=== PATIENT | female | born 1990 | race Caucasian/White ===

== ENCOUNTER 2020-08-04 08:19 | Outpatient (CLI) | payer OTHER, SELFPAY ==
--- NOTE | 2020-08-04 08:28 | XR_ITS ---
WS: [id number] CERVICAL SPINE TECHNIQUE: 3 views of the cervical spine CLINICAL INFORMATION: NECK PAIN COMPARISON: None. FINDINGS: Normal cervical alignment. Normal C1-2 articulation. Normal prevertebral soft tissues. Disc space hei ghts are well-maintained. Normal dens. XR/XR cervical spine 3V* [id number] IMPRESSION: Normal cervical spine
== END 2020-08-04 08:20 | disposition home or self-care (01) ==
PROVIDERS: PCP Nurse Practitioner Family; Visit Provider Nurse Practitioner Family
DX: M54.2 Cervicalgia (principal)
CPT/HCPCS: 72040

== ENCOUNTER → 2020-08-21 10:00 | Outpatient (BNVA) | payer OTHER, SELFPAY | PROVIDERS: PCP Nurse Practitioner Family; Visit Provider Obstetrics & Gynecology | DX: Z12.4 Encounter for screening for malignant neoplasm of cervix (principal); N72 Inflammatory disease of cervix uteri; R63.5 Abnormal weight gain; R10.2 Pelvic and perineal pain; N63.0 Unspecified lump in unspecified breast | CPT/HCPCS: 83525; 85025; 88175 ==

== ENCOUNTER → 2020-08-24 13:47 | Outpatient (BNVA) | payer OTHER, SELFPAY | PROVIDERS: PCP Nurse Practitioner Family; Visit Provider Obstetrics & Gynecology | DX: R10.31 Right lower quadrant pain (principal) | CPT/HCPCS: 76830 ==

== ENCOUNTER 2020-10-02 14:47 | Outpatient (CLI) | payer OTHER, SELFPAY ==
--- NOTE | 2020-10-02 15:00 | US_ITS ---
WS: [id number] ULTRASOUND BREAST RIGHT TECHNIQUE: Ultrasound right breast focused area of concern. CLINICAL INFORMATION: N63.0 - Unspecified lump in unspecified breast COMPARISON: None. FINDINGS: Ultrasound area of concern right breast 11 to 12:00 position. Dense underlying breast parenchyma. No suspicious underlying lesions. Tiny incidental cyst measuring 5 mm. No lesions to target for biopsy. US/US breast RT limited* [id number] IMPRESSION: No suspicious findings. RECOMMEND ANNUAL SCREENING MAMMOGRAPHY AGE 41.
== END 2020-10-02 14:48 | disposition home or self-care (01) ==
LOC: RAD 14:50
PROVIDERS: PCP Nurse Practitioner Family; Visit Provider Obstetrics & Gynecology
DX: N63.10 Unspecified lump in the right breast, unspecified quadrant (principal)
CPT/HCPCS: 76642

== ENCOUNTER 2020-12-19 15:00 | Outpatient (CLI) | payer OTHER, SELFPAY | END 2020-12-19 15:01 | disposition home or self-care (01) | LOC: SLEEP 12-20 16:15 | PROVIDERS: PCP Nurse Practitioner Family; Visit Provider Internal Medicine Cardiovascular Disease | DX: R07.9 Chest pain, unspecified (principal); R00.2 Palpitations; R06.00 Dyspnea, unspecified | CPT/HCPCS: 94762 ==

== ENCOUNTER 2020-12-19 15:25 | Outpatient (CLI) | payer OTHER, SELFPAY ==
--- NOTE | 2020-12-19 15:45 | USCV_ITS ---
Ashleigh Chung Age: 30 Gender: F : 1990 Exam Date: 12/19/2020 15:49 Ordering Phys: Allison Medrano MD ([email or web address]) Technologist: Linda Reis Exam Location: [facility] [place] Indication: CHEST PAIN BP: 106 / 72 HR: 77 Rhythm: Sinus Technical Quality: Adequate MEASUREMENTS (Male / Female) Normal Values 2D ECHO LV Diastolic Diameter PLAX 4.4 cm 4.2 - 5.9 / 3.9 - 5.3 cm LV Systolic Diameter PLAX 2.6 cm IVS Diastolic Thickness 0.8 cm 0.6 - 1.0 / 0.6 - 0.9 cm IVS Systolic Thickness 1.7 cm LVPW Diastolic Thickness 1.0 cm 0.6 - 1.0 / 0.6 - 0.9 cm LVPW Systolic Thickness 1.4 cm LVOT Diameter 1.9 cm LV Ejection Fraction 2D Teich 72.3 % LV Ejection Fraction MOD 2C 78.4 % LV Ejection Fraction 2C AL 77.9 % LA Diameter 3.1 cm LA Width 2.9 cm LA Height 3.4 cm RA Width 2.9 cm RA Height 3.0 cm Aorta at Sinotubular Diameter 2.6 cm DOPPLER AV Peak Velocity 123.0 cm/s LVOT Peak Velocity 101.0 cm/s AV Area Cont Eq vti 2.3 cm squared AV Area Cont Eq pk 2.4 cm squared MV Area PHT 6.3 cm squared Mitral E to A Ratio 1.5 MV E' Velocity 52.0 cm/s Mitral E to MV E' Ratio 5.9 Mitral E to LV E' Lateral Ratio 5.9 Mitral E to LV E' Septal Ratio 5.8 TR Peak Velocity 172.7 cm/s TR Peak Gradient 11.9 mmHg TV Peak E Velocity 121.0 cm/s Right Atrial Pressure 3.0 mmHg Pulmonary Artery Systolic Pressu 14.9 mmHg RV Acceleration Time 0.1 s RV Ejection Time 0.3 s RV AcT/ET 0.4 FINDINGS Left Ventricle Normal left ventricular size, systolic function and wall thickness, with no regional wall motion abnormalities. Left ventricular ejection fraction is estimated at 65 %. Normal diastolic function. Right Ventricle Normal right ventricular size and systolic function, RVSP 15 mmHg. Right Atrium Normal right atrial size. Right atrial pressure estimated at 3 mmHg. Left Atrium Normal left atrial size. Mitral Valve Structurally normal mitral valve. No mitral valve stenosis. Trace mitral valve regurgitation. Aortic Valve Structurally normal trileaflet aortic valve. No aortic valve stenosis. No aortic valve regurgitation. Tricuspid Valve Structurally normal tricuspid valve. No tricuspid valve stenosis. Mild tricuspid valve regurgitation. Pulmonic Valve Structurally normal pulmonic valve. No pulmonary valve stenosis. Trace pulmonary valve regurgitation. Pericardium No pericardial effusion. Aorta Normal size aortic root and proximal ascending aorta. Normal- sized inferior vena cava with normal respiratory variation. CONCLUSIONS 1. Normal left ventricular size, systolic function and wall thickness, with no regional wall motion abnormalities. Left ventricular ejection fraction is estimated at 65 %. Normal diastolic function. 2. Normal right ventricular size and systolic function. 3. Normal pulmonary artery pressure. 4. Mild tricuspid valve regurgitation. 5. No pericardial effusion. 6. No prior similar studies to compare. Allison Medrano MD (Electronically Signed) Final Date: 23 Dec 2020 18:52 S
== END 2020-12-19 15:26 | disposition home or self-care (01) ==
LOC: US 15:29
PROVIDERS: PCP Nurse Practitioner Family; Visit Provider Internal Medicine Cardiovascular Disease
DX: R07.9 Chest pain, unspecified (principal); I07.1 Rheumatic tricuspid insufficiency
CPT/HCPCS: 93306

== ENCOUNTER 2021-05-15 09:29 | Outpatient (CLI) | payer OTHER, SELFPAY ==
--- NOTE | 2021-05-15 09:36 | XR_ITS ---
WS: [id number] Sacrum and coccyx, 3 views, 05/15/2021 Clinical Data: COCCYX PAIN Comparison: None. Findings: No fractures or dislocations are seen. The SI joints and pubic symphysis are unremarkable. No bone de struction or erosion is seen. XR/XR sacrum coccyx min 2V [id number] Impression: Negative sacrum and coccyx.
== END 2021-05-15 09:30 | disposition home or self-care (01) ==
PROVIDERS: PCP Nurse Practitioner Family; Visit Provider Nurse Practitioner Family
DX: M53.3 Sacrococcygeal disorders, not elsewhere classified (principal)
CPT/HCPCS: 72220

== ENCOUNTER 2022-03-19 10:10 | Outpatient (CLI) | payer OTHER, SELFPAY ==
--- NOTE | 2022-03-19 10:15 | MM_ITS ---
WS: [id number] DIAGNOSTIC BILATERAL DIGITAL BREAST TOMOSYNTHESIS MAMMOGRAPHY WITH CAD RIGHT breast ultrasound, limited. HISTORY: BILATERAL BREAST PAIN COMPARISON: None available. TECHNIQUE: Bilateral craniocaudad, mediolateral oblique, and mediolateral views are submitted with to mosynthesis and SM. Spot compression RIGHT CC. Computer aided detection utilized. Breast composition: The breasts are heterogeneously dense, which may obscure small masses. Triangular palpable marker is placed over the upper outer quadrant of the RIGHT breast. No underlying mass or d istortion identified. No calcifications within either breast. No nipple retraction. RIGHT breast ultrasound, limited. Ultrasound directed all 4 quadrants as by the patient. Pain in all 4 quadrants. No abnormality is humphrey ntified. 9 lymph node in the RIGHT axilla. No architectural distortion. No skin thickening. No mass. MM/[place] [id number] IMPRESSION: BI-RADS: 2-Benign FOLLOW UP: Age 41
== END 2022-03-19 10:11 | disposition home or self-care (01) ==
LOC: RAD 10:11
PROVIDERS: PCP Nurse Practitioner Family; Visit Provider Nurse Practitioner Family
DX: N64.4 Mastodynia (principal)
CPT/HCPCS: 76642; 77062

== ENCOUNTER 2022-03-29 12:44 | Emergency (ER) | payer OTHER, SELFPAY ==
[2022-03-29 12:50] VITALS: BP 153/93; PULSE 71; RESP 16; TEMP 36.7; O2SAT 98
--- NOTE | 2022-03-29 13:09 | US_ITS ---
WS: [id number] TRANSABDOMINAL PELVIC AND TRANSVAGINAL PELVIC ULTRASOUND HISTORY: rule out ovarian cyst COMPARISON: 08/24/2020 Uterus: 10.7 cm x 6.7 cm x 5.4 cm. Anteverted uterus. Uterus is slightly enlarged. No fibroid or mass . Endometrium: 1.4 cm. Normal endometrium. No increased vascularity. Right ovary: 3.8 cm x 3.2 cm x 2.2 cm. Multiple small peripheral follicles associated with the RIGHT ovary. One follicle is complex and may be hemorrhagic. No cysts. No solid mass. Normal vascularity. Left ovary: 3.1 cm x 1.4 cm x 2.8 cm. Normal size ovary. Normal vascularity. No free fluid. US/US pelvic with transvaginal IMPRESSION: 1. No free fluid. 2. Normal endometrium. 3. Several small follicles on the RIGHT ovary. No solid mass or torsion identi fied.
--- NOTE | 2022-03-29 13:10 | ED_ITS ---
Documented by User: Nani Mejía PA-C 03/29/22 15:15 HPI - Abdominal Pain General: Chief Complaint: Abdominal Pain Stated Complaint: Lower abd pain, N/V Time Seen by Provider: 03/29/22 13:05 Source: patient Mode of arrival: ambulatory Limitations: no limitations History of Present Illness: 31-year-old female presents to the ER today for lower abdominal pain x24 hours. Patient reports the pain began yesterday morning and then she had intercourse last night and reports during intercourse she had to stop and she has had significantly worsened pain since then. Patient reports it hurts to move and just hurts at rest also. She reports pain radiates all the way across her lower abdomen and into her pelvis. She reports some these are shooting pains. Patient reports LMP was 03/15. Patient reports she has had a tubal. Patient reports she last had a Pap 2 months ago which was normal. She denies any history of STDs. Patient reports she is in a monogamous relationship. Patient denies any pain with urination. She reports a history of possible ovarian cysts however these have never been evaluated or treated. Patient reports she does not take any control at this time but did in the past off and on. Patient denies any fever or chills. Denies any nausea or vomiting other than nausea associated with the bad pain. She denies any diarrhea or constipation. Related Data: Date of Last Menstrual Period: 03/15/22 Review of Systems General: Reports: 10 or more systems reviewed and unremarkable except in HPI and below PFSH ED PFSH: Medical History Cervical cancer screening Cervicitis and endocervicitis Weight gain Surgical History H/O dilation and curettage 2011 History of delivery 10/07/2014-primary low transverse delivery done for nonreassuring heart tracing by Dr. Tirado [place] [facility] [place] Immediate postoperative course was complicated by hemorrhage intraoperatively secondary to uterine atony. Patient's hemoglobin postoperatively dropped to 7.6 and she was given a transfusion of 4 units of PRBCs as she was lightheaded. Her hemoglobin recovered well and upon discharge was 12.1. History of tubal ligation 2014 Family History Mother Ovarian cancer Uterine cancer Hypertension Grandmother Breast cancer Diabetes Cervical cancer Family/Other Family history of thyroid problem aunt Hypertension Aunt and Uncle Diabetes Aunt Grandmother No problems noted. Grandfather Diabetes Social History Smoking and tobacco status: current every day smoker cigarettes Packs smoked per day: 0.5 Years cigarettes smoked: 13 Alcohol intake: current Alcohol intake frequency: few times a month Female Reproductive History: Date of last menstrual period: 03/15/22 Physical Exam Const: COMMON NORMALS: average body habitus, patient oriented x3, no limitations, healthy appearing, alert and well nourished Resp: COMMON NORMALS: normal respiratory effort, No retractions and clear to auscultation bilaterally AUSCULTATION: clear to auscultation bilaterally Cardio: COMMON NORMALS: regular rate and regular rhythm RATE: regular rate RHYTHM: regular rhythm GI: COMMON NORMALS: Normal to inspection, nondistended, normoactive bowel sounds present PALPATION: Yes Tenderness to palpation present (GI) Details: other (suprapubic) : COMMON NORMALS: Yes no CVA tenderness, Yes normal appearance of the vagina and Yes normal appearance of the cervix BLADDER/KIDNEY EXAM: Yes no CVA tenderness OTHER: Normal discharge noted however patient is exquisitely tender on exam with significant tenderness noted of the cervix. Patient has cervical motion tenderness. Back/Pelvis: COMMON NORMALS: no CVA tenderness Extremity: COMMON NORMALS: normal to inspection and full ROM Neuro: COMMON NORMALS: patient oriented x3 SENSORIUM/ORIENTATION: Yes alert Psych: COMMON NORMALS: mental status grossly normal, Normal thought process present and cooperative THOUGHT PROCESS: Normal thought process present Skin: COMMON NORMALS: no rashes or lesions noted and no wounds GENERAL SKIN EXAM: no rashes or lesions noted Course ED course: 31-year-old female presents to the ER today for lower abdominal pain and suprapubic/pelvic pain for the last 24 hours. Patient reports began yesterday morning and worsened after intercourse last night. Patient denies any history of STDs. Patient reports she is in a monogamous relationship. She does have a history of possible ovarian cyst. Patient reports last menstrual period was on March 15. Patient reports she is taking Tylenol for the pain but it is not helping. Patient reports some nausea associated but denies any change in bowel or bladder habits. We will do a pelvic ultrasound at this time. We will also do STD testing and lab work. Vital Signs: Vital signs: Vital Signs Temperature 98.0 F 03/29/22 12:50 Pulse Rate 75 03/29/22 14:38 Respiratory Rate 18 03/29/22 14:38 Blood Pressure 132/89 03/29/22 14:38 Pulse Oximetry 97 03/29/22 14:38 Oxygen Delivery Me thod 03/29/22 12:50 MDM - Abdominal Pain Medical Decision Making 31-year-old female presents to the ER today for lower abdominal pain and suprapubic/pelvic pain for the last 24 hours. Patient reports began yesterday morning and worsened after intercourse last night. Patient denies any history of STDs. Patient reports she is in a monogamous relationship. She does have a history of possible ovarian cyst. Patient reports last menstrual period was on March 15. Patient reports she is taking Tylenol for the pain but it is not helping. Patient reports some nausea associated but denies any change in bowel or bladder habits. We will do a pelvic ultrasound at this time. We will also do STD testing and lab work. Ultrasound indicates some follicular cysts noted in the right ovary. This could be the cause of pain however patient was exquisitely tender on the transvaginal ultrasound at the area of the cervix. A pelvic exam was performed. Patient was significantly tender on exam and had cervical motion tenderness. Normal discharge noted. We did do STD testing. I will go ahead and treat for pelvic inflammatory disease given the cervical motion tenderness and patient's discomfort. Patient given 250 mg of Rocephin and a gram of azithromycin at this time. Also given a Toradol shot for pain. Patient's wet prep was negative. I discussed findings with patient. Patient should alternate Tylenol and ibuprofen for pain. Apply warm heating pad for abdominal discomfort. Follow-up with PCP in 4 to 7 days if no improvement. Return to the ER with any new or worsening symptoms. Patient verbalized understanding and was in agreement with the treatment plan. Lab Data : 03/29/22 01:58 03/29/22 01:58 Labs/Radiology: Radiology Impressions Pelvic/Transvag US 03/29/22 13:09 IMPRESSION: 1. No free fluid. 2. Normal endometrium. 3. Several small follicles on the RIGHT ovary. No solid mass or torsion identified. Laboratory Results WBC 8.3 10^3/uL (4.0-10.0) 03/29/22 01:58 RBC 3.90 10^6/uL (4.1-5.3) L 03/29/22 01:58 Hgb 12.4 g/dL (11.5-15.3) 03/29/22 01:58 Hct 37.0 % (37.0-47.0) 03/29/22 01:58 MCV 94.9 fl (81-99) 03/29/22 01:58 MCH 31.8 pg (28.0-34.0) 03/29/22 01:58 MCHC 33.5 g/dL (30.0-36.0) 03/29/22 01:58 RDW 12.4 % (12.1-15.1) 03/29/22 01:58 Plt Count 379 10^3/cmm (130-400) 03/29/22 01:58 MPV 8.3 fL (7.4-10.4) 03/29/22 01:58 Neut % (Auto) 60.1 % 03/29/22 01:58 Lymph % (Auto) 31.8 % 03/29/22 01:58 Elliott % (Auto) 6.3 % 03/29/22 01:58 Eos % (Auto) 1.1 % 03/29/22 01:58 Baso % (Auto) 0.5 % 03/29/22 01:58 Neut # (Auto) 4.99 10^3/uL (1.8-7.7) 03/29/22 01:58 Lymph # (Auto) 2.6 10^3/uL (0.8-4.8) 03/29/22 01:58 Elliott # (Auto) 0.5 10^3/uL (0.2-0.9) 03/29/22 01:58 Eos # (Auto) 0.1 10^3/uL (0.0-0.8) 03/29/22 01:58 Baso # (Auto) 0.0 10^3/uL (0.0-0.1) 03/29/22 01:58 Nucleated RBC % (auto) 0 % 03/29/22 01:58 Nucleated RBCs # 0.0 /100WBC 03/29/22 01:58 Sodium 140 mmol/L (136-145) 03/29/22 01:58 Potassium 4.0 mmol/L (3.5-5.1) 03/29/22 01:58 Chloride 103 mmol/L (98-107) 03/29/22 01:58 Carbon Dioxide 28 mmol/L (22-29) 03/29/22 01:58 Anion Gap 13.0 (5-19) 03/29/22 01:58 BUN 5 mg/dL (6-20) L 03/29/22 01:58 Creatinine 0.6 mg/dL (0.5-0.9) 03/29/22 01:58 GFR Calculation 117.4 mL/min (90-130) 03/29/22 01:58 Glucose 88 mg/dL (65-115) 03/29/22 01:58 Calculated Osmolality 287 mOsm/kg (285-295) 03/29/22 01:58 Calcium 9.3 mg/dL (8.5-10.5) 03/29/22 01:58 Urine Color Yellow (Yellow) 03/29/22 13:00 Urine Appearance Clear (CLEAR) 03/29/22 13:00 Urine pH 7 (5-7) 03/29/22 13:00 Ur Specific Belk 1.010 (1.005-1.030) 03/29/22 13:00 Urine Protein Neg (Negative) 03/29/22 13:00 Urine Glucose (UA) Norm (Normal) 03/29/22 13:00 Urine Ketones Negative (Negative) 03/29/22 13:00 Urine Blood 2+ (Negative) H 03/29/22 13:00 Urine Nitrate Negative (Negative) 03/29/22 13:00 Urine Bilirubin Neg (Negative) 03/29/22 13:00 Urine Urobilinogen Norm mg/dL (Negative) 03/29/22 13:00 Ur Leukocyte Esterase Negative (Negative) 03/29/22 13:00 Urine RBC 0-4 /hpf (0-2) H 03/29/22 13:00 Urine WBC 0-4 /hpf (0-5) H 03/29/22 13:00 Ur Squamous Epith Cells 0-4 /hpf (0-5) H 03/29/22 13:00 Amorphous Sediment Not Reportable 03/29/22 13:00 Urine Bacteria Trace /hpf (NONE) 03/29/22 13:00 Critical Care Time Critical Care Time: Critical Care Time: No Discharge Plan Discharge Patient Disposition: Home Clinical Impression: Follicular cyst of right ovary, Pelvic pain Condition: Stable Prescriptions: No Action pantoprazole 20 mg tablet,delayed release (DR/EC) 20 mg PO DAILY nitroglycerin 0.4 mg tablet, sublingual 0.4 mg sublingual Q5M PRN (Reason: chest pain) Qty: 25 3RF Rx Instructions: do not exceed 3 doses per episode fluoxetine 20 mg tablet 20 mg PO DAILY albuterol sulfate 90 mcg/actuation Hfa Aerosol Inhaler 2 puff INHALATION Q6H PRN (Reason: Shortness Of Breath Or Wheezing) Discharge Orders: Discharge ED (Routine); Ordered 03/29/22 Ordered By: Nani Mejía Referrals: Nusrat Chavis FNP [Primary Care Provider] - Discharge Diet: Usual diet Discharge Activity: Resume usual activity Patient Instructions: Opioid Safety Activity Restrictions/Additional Instructions: Alternate Tylenol and ibuprofen for pain. Warm compresses recommended. Follow- up with PCP in 4 to 7 days if no improvement. Return to the ER with any new or worsening symptoms. Coding Level of Care Code ED Stitching Department Supervisor for Chg Fwd Exam Comprehensive Documented by User: Elijah Bruce DO 03/29/22 15:20 HPI - Abdominal Pain General: Chief Complaint: Abdominal Pain Stated Complaint: Lower abd pain, N/V Time Seen by Provider: 03/29/22 13:05 PFSH ED PFSH: Medical History Cervical cancer screening Cervicitis and endocervicitis Weight gain Surgical History H/O dilation and curettage 2011 History of delivery 10/07/2014-primary low transverse delivery done for nonreassuring heart tracing by Dr. Tirado [place] [facility] [place] Immediate postoperative course was complicated by hemorrhage intraoperatively secondary to uterine atony. Patient's hemoglobin postoperatively dropped to 7.6 and she was given a transfusion of 4 units of PRBCs as she was lightheaded. Her hemoglobin rec overed well and upon discharge was 12.1. History of tubal ligation 2014 Family History Mother Ovarian cancer Uterine cancer Hypertension Grandmother Breast cancer Diabetes Cervical cancer Family/Other Family history of thyroid problem aunt Hypertension Aunt and Uncle Diabetes Aunt Grandmother No problems noted. Grandfather Diabetes Social History Smoking and tobacco status: current every day smoker cigarettes Packs smoked per day: 0.5 Years cigarettes smoked: 13 Alcohol intake: current Alcohol intake frequency: few times a month Course Vital Signs: Vital signs: Vital Signs Temperature 98.0 F 03/29/22 12:50 Pulse Rate 75 03/29/22 14:38 Respiratory Rate 18 03/29/22 14:38 Blood Pressure 132/89 03/29/22 14:38 Pulse Oximetry 97 03/29/22 14:38 Oxygen Delivery Me thod 03/29/22 12:50 MDM - Abdominal Pain Medical Decision Making 31-year-old female presents to the ER today for lower abdominal pain and suprapubic/pelvic pain for the last 24 hours. Patient reports began yesterday morning and worsened after intercourse last night. Patient denies any history of STDs. Patient reports she is in a monogamous relationship. She does have a history of possible ovarian cyst. Patient reports last menstrual period was on March 15. Patient reports she is taking Tylenol for the pain but it is not helping. Patient reports some nausea associated but denies any change in bowel or bladder habits. We will do a pelvic ultrasound at this time. We will also do STD testing and lab work. Ultrasound indicates some follicular cysts noted in the right ovary. This could be the cause of pain however patient was exquisitely tender on the transvaginal ultrasound at the area of the cervix. A pelvic exam was performed. Patient was significantly tender on exam and had cervical motion tenderness. Normal discharge noted. We did do STD testing. I will go ahead and treat for pelvic inflammatory disease given the cervical motion tenderness and patient's discomfort. Patient given 250 mg of Rocephin and a gram of azithromycin at this time. Also given a Toradol shot for pain. Patient's wet prep was negative. I discussed findings with patient. Patient should alternate Tylenol and ibuprofen for pain. Apply warm heating pad for abdominal discomfort. Follow-up with PCP in 4 to 7 days if no improvement. Return to the ER with any new or worsening symptoms. Patient verbalized understanding and was in agreement with the treatment plan. Chart reviewed and patient discussed with midlevel. Agree with assessment and plan. Lab Data : 03/29/22 01:58 03/29/22 01:58 Labs/Radiology: Radiology Impressions Pelvic/Transvag US 03/29/22 13:09 IMPRESSION: 1. No free fluid. 2. Normal endometrium. 3. Several small follicles on the RIGHT ovary. No solid mass or torsion identified. Laboratory Results WBC 8.3 10^3/uL (4.0-10.0) 03/29/22 01:58 RBC 3.90 10^6/uL (4.1-5.3) L 03/29/22 01:58 Hgb 12.4 g/dL (11.5-15.3) 03/29/22 01:58 Hct 37.0 % (37.0-47.0) 03/29/22 01:58 MCV 94.9 fl (81-99) 03/29/22 01:58 MCH 31.8 pg (28.0-34.0) 03/29/22 01:58 MCHC 33.5 g/dL (30.0-36.0) 03/29/22 01:58 RDW 12.4 % (12.1-15.1) 03/29/22 01:58 Plt Count 379 10^3/cmm (130-400) 03/29/22 01:58 MPV 8.3 fL (7.4-10.4) 03/29/22 01:58 Neut % (Auto) 60.1 % 03/29/22 01:58 Lymph % (Auto) 31.8 % 03/29/22 01:58 Elliott % (Auto) 6.3 % 03/29/22 01:58 Eos % (Auto) 1.1 % 03/29/22 01:58 Baso % (Auto) 0.5 % 03/29/22 01:58 Neut # (Auto) 4.99 10^3/uL (1.8-7.7) 03/29/22 01:58 Lymph # (Auto) 2.6 10^3/uL (0.8-4.8) 03/29/22 01:58 Elliott # (Auto) 0.5 10^3/uL (0.2-0.9) 03/29/22 01:58 Eos # (Auto) 0.1 10^3/uL (0.0-0.8) 03/29/22 01:58 Baso # (Auto) 0.0 10^3/uL (0.0-0.1) 03/29/22 01:58 Nucleated RBC % (auto) 0 % 03/29/22 01:58 Nucleated RBCs # 0.0 /100WBC 03/29/22 01:58 Sodium 140 mmol/L (136-145) 03/29/22 01:58 Potassium 4.0 mmol/L (3.5-5.1) 03/29/22 01:58 Chloride 103 mmol/L (98-107) 03/29/22 01:58 Carbon Dioxide 28 mmol/L (22-29) 03/29/22 01:58 Anion Gap 13.0 (5-19) 03/29/22 01:58 BUN 5 mg/dL (6-20) L 03/29/22 01:58 Creatinine 0.6 mg/dL (0.5-0.9) 03/29/22 01:58 GFR Calculation 117.4 mL/min (90-130) 03/29/22 01:58 Glucose 88 mg/dL (65-115) 03/29/22 01:58 Calculated Osmolality 287 mOsm/kg (285-295) 03/29/22 01:58 Calcium 9.3 mg/dL (8.5-10.5) 03/29/22 01:58 Urine Color Yellow (Yellow) 03/29/22 13:00 Urine Appearance Clear (CLEAR) 03/29/22 13:00 Urine pH 7 (5-7) 03/29/22 13:00 Ur Specific Belk 1.010 (1.005-1.030) 03/29/22 13:00 Urine Protein Neg (Negative) 03/29/22 13:00 Urine Glucose (UA) Norm (Normal) 03/29/22 13:00 Urine Ketones Negative (Negative) 03/29/22 13:00 Urine Blood 2+ (Negative) H 03/29/22 13:00 Urine Nitrate Negative (Negative) 03/29/22 13:00 Urine Bilirubin Neg (Negative) 03/29/22 13:00 Urine Urobilinogen Norm mg/dL (Negative) 03/29/22 13:00 Ur Leukocyte Esterase Negative (Negative) 03/29/22 13:00 Urine RBC 0-4 /hpf (0-2) H 03/29/22 13:00 Urine WBC 0-4 /hpf (0-5) H 03/29/22 13:00 Ur Squamous Epith Cells 0-4 /hpf (0-5) H 03/29/22 13:00 Amorphous Sediment Not Reportable 03/29/22 13:00 Urine Bacteria Trace /hpf (NONE) 03/29/22 13:00 Discharge Plan Discharge Patient Disposition: Home Clinical Impression: Follicular cyst of right ovary, Pelvic pain Condition: Stable Prescriptions: No Action pantoprazole 20 mg tablet,delayed release (DR/EC) 20 mg PO DAILY nitroglycerin 0.4 mg tablet, sublingual 0.4 mg sublingual Q5M PRN (Reason: chest pain) Qty: 25 3RF Rx Instructions: do not exceed 3 doses per episode fluoxetine 20 mg tablet 20 mg PO DAILY albuterol sulfate 90 mcg/actuation Hfa Aerosol Inhaler 2 puff INHALATION Q6H PRN (Reason: Shortness Of Breath Or Wheezing) Discharge Orders: Discharge ED (Routine); Ordered 03/29/22 Ordered By: Nani Mejía Referrals: Nusrat Chavis FNP [Primary Care Provider] - Discharge Diet: Usual diet Discharge Activity: Resume usual activity Patient Instructions: Opioid Safety Activity Restrictions/Additional Instructions: Alternate Tylenol and ibuprofen for pain. Warm compresses recommended. Follow- up with PCP in 4 to 7 days if no improvement. Return to the ER with any new or worsening symptoms. Coding Level of Care Code ED Stitching Department Supervisor for Merylg Fwd Exam Comprehensive
[2022-03-29 13:27] VITALS: BP 146/79; PULSE 73; RESP 18; O2SAT 98
[2022-03-29 13:46] LABS: Add Urine Microscopic? YES; Bilirubin Urine Neg (Negative); Blood Urine 2+ (Negative); Glucose Urine UA Norm (Normal); Ketones Urine Negative (Negative); Leukocyte Esterase Urine Negative (Negative); Nitrate Urine Negative (Negative); Protein Urine Neg (Negative); RBC Urine 0-4 /hpf (0-2); Squamous Epithelial Cell Urine 0-4 /hpf (0-5); Urine Appearance Clear (CLEAR); Urine Color Yellow (Yellow); Urobilinogen Urine Norm (Negative); WBC Urine 0-4 /hpf (0-5); pH Urine 7 (5-7)
[2022-03-29 13:47] LABS: Add Urine Culture? No; Bacteria Urine TRACE /hpf
[2022-03-29 14:08] LABS: Basophils % 0.5 %; Eosinophils # 0.1 10^3/uL (0.0-0.8); Eosinophils % 1.1 %; Hemoglobin 12.4 g/dL (11.5-15.3); Lymphocytes # 2.6 10^3/uL (0.8-4.8); Lymphocytes % 31.8 %; Mean Corpuscular HGB Conc 33.5 g/dL (30.0-36.0); Mean Corpuscular Hemoglobin 31.8 pg (28.0-34.0); Mean Corpuscular Volume 94.9 fl (81-99); Mean Platelet Volume 8.3 fL (7.4-10.4); Monocytes # 0.5 10^3/uL (0.2-0.9); Monocytes % 6.3 %; Neutrophils # 4.99 10^3/uL (1.8-7.7); Neutrophils % 60.1 %; Nucleated Red Blood Cells % 0 %; Platelet Count 379 10^3/cmm (130-400); Red Cell Distribution Width 12.4 % (12.1-15.1); White Blood Count 8.3 10^3/uL (4.0-10.0)
[2022-03-29 14:22] LABS: Blood Urea Nitrogen 5 mg/dL (6-20); Calcium 9.3 mg/dL (8.5-10.5); Carbon Dioxide 28 mmol/L (22-29); Chloride 103 mmol/L (98-107); Glomerular Filtration Rate 117.4 mL/min (90-130); Glucose 88 mg/dL (65-115); Osmolality Calculated 287 mOsm/kg (285-295); Sodium 140 mmol/L (136-145)
[2022-03-29 14:38] VITALS: BP 132/89; PULSE 75; RESP 18; O2SAT 97
[2022-03-29] MEDS: azithromycin 250 mg Tablet 1000 MG PO (14:45)
[2022-03-29] MEDS: ketorolac 30 mg/mL INJ IM (14:47)
[2022-03-29 15:23] VITALS: BP 133/80; PULSE 78; RESP 17; O2SAT 99
== END 2022-03-29 15:25 | disposition home or self-care (01) ==
PROVIDERS: Emergency Provider Physician Assistant; PCP Nurse Practitioner Family
DX: N83.01 Follicular cyst of right ovary (principal); R10.2 Pelvic and perineal pain; F17.210 Nicotine dependence, cigarettes, uncomplicated
CPT/HCPCS: 36415; 76830; 76856; 80048; 81001; 85025; 87210; 96372; 99285; J0696; J1885; Q0144

== ENCOUNTER 2022-06-26 11:05 | Emergency (ER) | payer OTHER, SELFPAY ==
[2022-06-26 11:26] VITALS: BP 127/79; PULSE 77; RESP 14; TEMP 36.9; O2SAT 100; BMI 34.0
[2022-06-26 12:02] LABS: Basophils % 0.4 %; Eosinophils # 0.1 10^3/uL (0.0-0.8); Eosinophils % 0.5 %; Hematocrit 38.2 % (37.0-47.0); Hemoglobin 12.5 g/dL (11.5-15.3); Lymphocytes # 3.4 10^3/uL (0.8-4.8); Lymphocytes % 35.9 %; Mean Corpuscular HGB Conc 32.7 g/dL (30.0-36.0); Mean Corpuscular Hemoglobin 30.8 pg (28.0-34.0); Mean Corpuscular Volume 94.1 fl (81-99); Mean Platelet Volume 8.2 fL (7.4-10.4); Monocytes # 0.5 10^3/uL (0.2-0.9); Monocytes % 5.2 %; Neutrophils # 5.46 10^3/uL (1.8-7.7); Neutrophils % 57.8 %; Nucleated Red Blood Cells % 0 %; Platelet Count 449 10^3/cmm (130-400); Red Blood Count 4.06 10^6/uL (4.1-5.3); White Blood Count 9.5 10^3/uL (4.0-10.0)
[2022-06-26 12:03] VITALS: RESP 18; O2SAT 97
[2022-06-26] MEDS: morphine 4 mg/mL SDV 1 mL IVP ×2 (12:03→13:53)
[2022-06-26] MEDS: ondansetron 2 mg/ML SDV 2 mL 4 MG IVP (12:04)
[2022-06-26 12:05] VITALS: BP 150/73; PULSE 64; RESP 18; O2SAT 98
[2022-06-26 12:05] LABS: Add Urine Microscopic? NO; Charge for UA Resulting for Rev
[2022-06-26] MEDS: sodium chloride 0.9% 1,000 ML 999 ML IV (12:05)
[2022-06-26 12:08] LABS: Bilirubin Urine Neg (Negative); Blood Urine Neg (Negative); Glucose Urine UA Norm (Normal); Ketones Urine Negative (Negative); Leukocyte Esterase Urine Negative (Negative); Nitrate Urine Negative (Negative); Protein Urine Neg (Negative); Sulfosalicylic Acid Urine Negative (Negative); Urine Appearance Clear (CLEAR); Urine Color Yellow (Yellow); Urobilinogen Urine Norm (Negative); pH Urine 8 (5-7)
[2022-06-26 12:15] LABS: HCG, Serum Qual Negative (Negative)
--- NOTE | 2022-06-26 12:17 | W.ED.ABDPA2 ---
HPI - Abdominal Pain General: Chief Complaint: Abdominal Pain Stated Complaint: abd pains, N/V Time Seen by Provider: 06/26/22 11:41 History of Present Illness: Patient is a 32-year-old female that comes to the ED with abdominal pain. Symptoms started yesterday evening. Pain is located in the right lower quadrant of the abdomen. She says it is a constant sharp pain that she rates currently a 10 out of 10. Pain radiates to her right upper quadrant of abdomen and right lower back. Eating food or any movement makes pain worse. She endorses having nausea and vomiting as well. Denies any fevers, dysuria, hematuria or diarrhea. Past surgical history of and tubal ligation. Associated Symptoms: Reports nausea and vomiting; Denies chills, constipation, diarrhea, dysuria, fever(s), hematochezia and hematuria Related Data: Date of Last Menstrual Period: 03/15/22 Review of Systems Const: Denies: fever(s), chills or fatigue Eyes: Denies: change in vision or eye discomfort ENMT: Denies: throat pain, odynophagia, nasal discharge or nasal congestion Card: Denies: chest pain, palpitations, edema, swelling of feet/ankles, dyspnea on exertion or orthopnea Resp: Denies: dyspnea, productive cough or non-productive cough GI: Reports: abdominal pain, nausea and vomiting; Denies: diarrhea, constipation or hematochezia : Denies: flank pain, dysuria or hematuria Musc: Denies: neck pain, back pain or extremity swelling Skin/Breast: Denies: rash or new lesions Neuro: Denies: headache(s), numbness in extremities or weakness in extremities PFSH ED PFSH: Medical History Cervical cancer screening Cervicitis and endocervicitis Weight gain Surgical History H/O dilation and curettage 2011 History of delivery 10/07/2014-primary low transverse delivery done for nonreassuring heart tracing by Dr. Tirado at [facility] [place]. Immediate postoperative course was complicated by hemorrhage intraoperatively secondary to uterine atony. Patient's hemoglobin postoperatively dropped to 7.6 and she was given a transfusion of 4 units of PRBCs as she was lightheaded. Her hemoglobin recovered well and upon discharge was 12.1. History of tubal ligation 2014 Family History Mother Ovarian cancer Uterine cancer Hypertension Grandmother Breast cancer Diabetes Cervical cancer Family/Other Family history of thyroid problem aunt Hypertension Aunt and Uncle Diabetes Aunt Grandmother No problems noted. Grandfather Diabetes Social History Smoking and tobacco status: current every day smoker cigarettes Packs smoked per day: 0.5 Years cigarettes smoked: 13 Alcohol intake: current Alcohol intake frequency: few times a month Female Reproductive History: Date of last menstrual period: 03/15/22 Physical Exam Const: COMMON NORMALS: patient oriented x3 and alert GENERAL APPEARANCE: cooperative HENMT: COMMON NORMALS: normocephalic HEAD & SCALP: normocephalic MOUTH: Normal oral and palatal mucosa present THROAT: posterior oropharynx normal and uvula midline Eye: GENERAL EYE: appearance normal, both eyes and all related structures Neck/C-Spine: COMMON NORMALS: supple GENERAL: Yes normal visual inspection Resp: COMMON NORMALS: normal respiratory effort, No retractions, No use of accessory muscles and clear to auscultation bilaterally AUSCULTATION: clear to auscultation bilaterally Cardio: COMMON NORMALS: regular rate, regular rhythm, S1 normal heart sound present, S2 normal heart sound present, No gallops present (Cardio), No clicks present (Cardio), No murmurs present (Cardio) and Peripheral pulses 2+ throughout RATE: regular rate RHYTHM: regular rhythm HEART SOUNDS: S1 normal heart sound present and S2 normal heart sound present PERIPHERAL PULSES: Peripheral pulses 2+ throughout GI: COMMON NORMALS: Normal to inspection, nondistended, normoactive bowel sounds present, Soft to palpation and no masses PALPATION: Yes Soft to palpation and Yes Tenderness to palpation present (GI) Details: RLQ : COMMON NORMALS: Yes no CVA tenderness BLADDER/KIDNEY EXAM: Yes no CVA tenderness Back/Pelvis: COMMON NORMALS: no CVA tenderness Extremity: COMMON NORMALS: normal to inspection Neuro: COMMON NORMALS: patient oriented x3 SENSORIUM/ORIENTATION: Yes alert GAIT: Yes Normal gait present Skin: GENERAL SKIN EXAM: dry skin Course Vital Signs: Vital signs: Vital Signs Temperature 98.4 F 06/26/22 11:26 Pulse Rate 64 06/26/22 12:05 Respiratory Rate 18 06/26/22 13:53 Blood Pressure 150/73 06/26/22 12:05 Pulse Oximetry 98 06/26/22 12:05 Oxygen Delivery Me thod 06/26/22 12:05 MDM - Abdominal Pain Medical Decision Making Patient is a 32-year-old female that comes to the ED with abdominal pain. Symptoms started yesterday evening. Pain is located in the right lower quadrant of the abdomen. She says it is a constant sharp pain that she rates currently a 10 out of 10. Pain radiates to her right upper quadrant of abdomen and right lower back. Eating food or any movement makes pain worse. Vitals are stable and patient appears nontoxic and in no acute distress or pain. She has some right lower quadrant tenderness of her abdomen but rest of her exam is benign. All labs are unremarkable. CT of abdomen pelvis shows no acute findings but notes a right ovarian cyst. Patient was given IV morphine, Zofran and fluids and her symptoms did improve. She was stable for discharge home and diagnosed with abdominal pain and right ovarian cyst. Told to follow-up with her PCP in the next week for reevaluation. She was sent with a prescription for a muscle relaxer, Zofran and a couple hydrocodone tablets to help with acute pain. Return to ED precautions given. Patient understood and agreed with plan. Lab Data I reviewed the patient's lab results. 06/26/22 11:52 06/26/22 11:52 Labs/Radiology: Radiology Impressions Abdomen/Pelvis CT 06/26/22 12:23 IMPRESSION: 1. Normal appendix.No evidence of acute appendicitis. 2. No hydronephrosis in either kidney. No obstructing renal or ureteral calculi. 3. Multicystic RIGHT ovary with largest cyst/follicle measuring 14 mm. 4. No free fluid in the cul-de-sac. 5. No other acute findings. Laboratory Results WBC 9.5 10^3/uL (4.0-10.0) 06/26/22 11:52 RBC 4.06 10^6/uL (4.1-5.3) L 06/26/22 11:52 Hgb 12.5 g/dL (11.5-15.3) 06/26/22 11:52 Hct 38.2 % (37.0-47.0) 06/26/22 11:52 MCV 94.1 fl (81-99) 06/26/22 11:52 MCH 30.8 pg (28.0-34.0) 06/26/22 11:52 MCHC 32.7 g/dL (30.0-36.0) 06/26/22 11:52 RDW 12.0 % (12.1-15.1) L 06/26/22 11:52 Plt Count 449 10^3/cmm (130-400) H 06/26/22 11:52 MPV 8.2 fL (7.4-10.4) 06/26/22 11:52 Neut % (Auto) 57.8 % 06/26/22 11:52 Lymph % (Auto) 35.9 % 06/26/22 11:52 [place] % (Auto) 5.2 % 06/26/22 11:52 Eos % (Auto) 0.5 % 06/26/22 11:52 Baso % (Auto) 0.4 % 06/26/22 11:52 Neut # (Auto) 5.46 10^3/uL (1.8-7.7) 06/26/22 11:52 Lymph # (Auto) 3.4 10^3/uL (0.8-4.8) 06/26/22 11:52 [place] # (Auto) 0.5 10^3/uL (0.2-0.9) 06/26/22 11:52 Eos # (Auto) 0.1 10^3/uL (0.0-0.8) 06/26/22 11:52 Baso # (Auto) 0.0 10^3/uL (0.0-0.1) 06/26/22 11:52 Nucleated RBC % (auto) 0 % 06/26/22 11:52 Nucleated RBCs # 0.0 /100WBC 06/26/22 11:52 Sodium 139 mmol/L (136-145) 06/26/22 11:52 Potassium 4.1 mmol/L (3.5-5.1) 06/26/22 11:52 Chloride 104 mmol/L (98-107) 06/26/22 11:52 Carbon Dioxide 26 mmol/L (22-29) 06/26/22 11:52 Anion Gap 13.1 (5-19) 06/26/22 11:52 BUN 4 mg/dL (6-20) L 06/26/22 11:52 Creatinine 0.6 mg/dL (0.5-0.9) 06/26/22 11:52 GFR Calculation 116.6 mL/min (90-130) 06/26/22 11:52 Glucose 89 mg/dL (65-115) 06/26/22 11:52 Calculated Osmolality 284 mOsm/kg (285-295) L 06/26/22 11:52 Calcium 9.5 mg/dL (8.5-10.5) 06/26/22 11:52 Total Bilirubin 0.2 mg/dL (0.15-1.2) 06/26/22 11:52 AST 17 U/L (0-32) 06/26/22 11:52 ALT 19 U/L (0-33) 06/26/22 11:52 Alkaline Phosphatase 101 U/L (35-105) 06/26/22 11:52 Total Protein 7.4 g/dL (6.6-8.7) 06/26/22 11:52 Albumin 4.5 g/dL (3.5-5.2) 06/26/22 11:52 Globulin 2.9 g/dL (1.3-4.6) 06/26/22 11:52 Lipase 24 U/L (13-60) 06/26/22 11:52 HCG, Qual Negative (Negative) 06/26/22 11:52 Urine Color Yellow (Yellow) 06/26/22 11:52 Urine Appearance Clear (CLEAR) 06/26/22 11:52 Urine pH 8 (5-7) H 06/26/22 11:52 Ur Specific [place] 1.010 (1.005-1.030) 06/26/22 11:52 Urine Protein Neg (Negative) 06/26/22 11:52 Urine Glucose (UA) Norm (Normal) 06/26/22 11:52 Urine Ketones Negative (Negative) 06/26/22 11:52 Urine Blood Neg (Negative) 06/26/22 11:52 Urine Nitrate Negative (Negative) 06/26/22 11:52 Urine Bilirubin Neg (Negative) 06/26/22 11:52 Prot Sulfosalicylic Acd Negative (Negative) 06/26/22 11:52 Urine Urobilinogen Norm mg/dL (Negative) 06/26/22 11:52 Ur Leukocyte Esterase Negative (Negative) 06/26/22 11:52 Discharge Plan Discharge Patient Disposition: Home Clinical Impression: Ovarian cyst, right Abdominal pain Qualifiers: Abdominal location: right lower quadrant Qualified Code(s): R10.31 - Right lower quadrant pain Condition: Stable Prescriptions: New cyclobenzaprine 10 mg tablet 10 mg PO BID PRN (Reason: muscle spasms and pain) Qty: 15 0RF ondansetron 4 mg tablet,disintegrating 4 mg PO Q8H PRN (Reason: nausea and vomiting) Qty: 15 0RF No Action pantoprazole 20 mg tablet,delayed release (DR/EC) 20 mg PO DAILY nitroglycerin 0.4 mg tablet, sublingual 0.4 mg sublingual Q5M PRN (Reason: chest pain) Qty: 25 3RF Rx Instructions: do not exceed 3 doses per episode fluoxetine 20 mg tablet 20 mg PO DAILY albuterol sulfate 90 mcg/actuation Hfa Aerosol Inhaler 2 puff INHALATION Q6H PRN (Reason: Shortness Of Breath Or Wheezing) Discharge Orders: Discharge ED (Routine); Ordered 06/26/22 Ordered By: Daniele Snell Referrals: Nusrat Chavis FNP [Primary Care Provider] - Discharge Diet: Regular Discharge Activity: Increase activity as tolerated Patient Instructions: Ovarian Cyst (ED), Abdominal Pain (ED), Opioid Safety Activity Restrictions/Additional Instructions: Follow-up with medical provider as directed in the next 7 to 10 days for reevaluation. Take medications as prescribed. Return to the ER or your medical provider if condition worsens. Please read and understand discharge instructions. Thank you for choosing [facility] for your healthcare needs today. Please realize this is an emergency room and that we are providing you with a medical screening exam and this may not be complete and all inclusive of all the testing and or work up that you may need to determine your ailment or severity of your illness. It is very important that you follow up as instructed or that you return to the Emergency Department should you have concerns or if your condition changes or worsens in any way. Coding Level of Care Code ED Supervisor Assembly Room for Wero Fwtimo Exam Comprehensive
[2022-06-26 12:22] LABS: Alanine Aminotransferase 19 U/L (0-33); Albumin Level 4.5 g/dL (3.5-5.2); Alkaline Phosphatase 101 U/L (35-105); Anion Gap 13.1 (5-19); Aspartate Amino Transferase 17 U/L (0-32); Blood Urea Nitrogen 4 mg/dL (6-20); Calcium 9.5 mg/dL (8.5-10.5); Carbon Dioxide 26 mmol/L (22-29); Chloride 104 mmol/L (98-107); Globulin 2.9 g/dL (1.3-4.6); Glomerular Filtration Rate 116.6 mL/min (90-130); Glucose 89 mg/dL (65-115); Lipase 24 U/L (13-60); Osmolality Calculated 284 mOsm/kg (285-295); Potassium 4.1 mmol/L (3.5-5.1); Sodium 139 mmol/L (136-145); Total Bilirubin 0.2 mg/dL (0.15-1.2); Total Protein 7.4 g/dL (6.6-8.7)
--- NOTE | 2022-06-26 12:23 | CT_ITS ---
WS: [id number] CT ABDOMEN PELVIS TECHNIQUE: Contrast-enhanced CT of the abdomen and pelvis with coronal and sagittal reformatted image s. CLINICAL INFORMATION: RLQ abdominal pain, n/v COMPARISON: None. DLP: 756.[address] scans at [facility] use at least one of these dose optimization techniques: automated e xposure control; mA and/or kV adjustment per patient size (includes targeted exams where dose is matc hed to clinical indication); or iterative reconstruction. FINDINGS: Normal appendix in the RIGHT lower quadrant. No evidence of acute appendicitis. No hydronephrosis in either kidney. No obstructing renal or ureter al calculi. No hydronephrosis. Normal renal parenchymal enhancement. Multicystic RIGHT ovary. Largest follicle/cyst measures 14 mm. No free fluid in the cul-de-sac. Normal sigmoid colon. Endometrial thi ckening or fluid. Nabothian cysts in the cervix. Lung bases are well aerated. Normal liver. Normal portal vein and splenic vein. Normal gallbladder. N ormal spleen. Normal GE junction. Sigmoid diverticulosis. Lung bases are well aerated. Normal caliber abdominal aorta. Tiny fat-containing umbilical hernia. CT/CT abdomen pelvis w con* [id number] IMPRESSION: 1. Normal appendix.No evidence of acute appendicitis. 2. No hydronephrosis in either kidney. No obstructing renal or ureteral calcul i. 3. Multicystic RIGHT ovary with largest cyst/follicle measuring 14 mm. 4. No free fluid in the cul-de-sac. 5. No other acute findings.
[2022-06-26] MEDS: iohexol 350 mg/mL 500 mL Btl (per mL) IV (12:44)
[2022-06-26 13:53] VITALS: RESP 18
== END 2022-06-26 14:53 | disposition home or self-care (01) ==
PROVIDERS: Emergency Provider Physician Assistant; PCP Nurse Practitioner Family
DX: N83.201 Unspecified ovarian cyst, right side (principal); R10.31 Right lower quadrant pain; F17.210 Nicotine dependence, cigarettes, uncomplicated
CPT/HCPCS: 74177; 80053; 81003; 83690; 84703; 85025; 96361; 96374; 96375; 96376; 99285; J2270; J2405; J7030; Q9967

== ENCOUNTER 2022-09-17 08:58 | Outpatient (CLI) | payer OTHER, SELFPAY ==
--- NOTE | 2022-09-17 09:15 | US_ITS ---
WS: [id number] RIGHT UPPER QUADRANT ULTRASOUND HISTORY: RECURRENT ABDOMINAL PAIN COMPARISON: None available. Liver: 16.3 cm in length. Normal size liver. No bile duct dilatation or mass. Portal Vein: Normal hepatopetal flow with monophasic waveform. Gallbladder: Normally distended gallbladder with no stones or wall thickening. CBD: 0.4 cm Pancreas: Normal size and echogenicity. Right kidney: 10.8 cm in length. Normal size and echogenicity. No hydronephrosis or mass. Aorta and IVC: Unremarkable abdominal aorta and IVC. No ascites. US/US gall bladder [id number] IMPRESSION: Normal RIGHT upper quadrant ultrasound.
== END 2022-09-17 08:59 | disposition home or self-care (01) ==
PROVIDERS: PCP Nurse Practitioner Family; Visit Provider Family Medicine
DX: R10.9 Unspecified abdominal pain (principal)
CPT/HCPCS: 76705

== ENCOUNTER 2023-10-12 18:02 | Emergency (ER) | payer OTHER, BC, MEDICAID, SELFPAY ==
[2023-10-12 18:08] VITALS: BP 170/82; PULSE 61; RESP 18; TEMP 36.5; O2SAT 99; BMI 36.2
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
[2023-10-12] MEDS: tetanus-dipt-pertussis 0.5 mL SDV IM (18:26)
[2023-10-12] MEDS: HYDROcodone-acetaminophen 5-325 mg Tablet 1 TAB PO (18:26)
[2023-10-12 19:15] VITALS: BP 154/96; PULSE 72; RESP 16; TEMP 36.5; O2SAT 99
== END 2023-10-12 19:16 | disposition home or self-care (01) ==
PROVIDERS: Emergency Provider Emergency Medicine; PCP Nurse Practitioner Family
DX: S90.02XA Contusion of left ankle, initial encounter (principal); S50.312A Abrasion of left elbow, initial encounter; V86.59XA Driver of other special all-terrain or other off-road motor vehicle injured in nontraffic accident, initial encounter; Z23 Encounter for immunization
CPT/HCPCS: 73030; 73080; 73610; 73630; 90471; 90715; 99284; E0114

== ENCOUNTER → 2023-10-20 13:41 | Outpatient (BNVA) | payer OTHER, BC, MEDICAID, SELFPAY | PROVIDERS: PCP Nurse Practitioner Family; Visit Provider Obstetrics & Gynecology | DX: N92.0 Excessive and frequent menstruation with regular cycle (principal) | CPT/HCPCS: 80053; 84443; 85025 ==

== ENCOUNTER → 2023-10-29 11:05 | Outpatient (BNVA) | payer OTHER, BC, MEDICAID, SELFPAY | PROVIDERS: PCP Nurse Practitioner Family; Visit Provider Obstetrics & Gynecology | DX: N92.0 Excessive and frequent menstruation with regular cycle (principal); N85.2 Hypertrophy of uterus | CPT/HCPCS: 76830 ==

== ENCOUNTER 2024-04-01 09:44 | Observation (INO) | payer BC, MEDICAID, SELFPAY ==
[2024-04-01] VITALS (21 sets, daily range): BP systolic 64–147; BP diastolic 47–102; PULSE 50–88; RESP 12–18; TEMP 36.1–36.8; O2SAT 96–100; BMI 36.6
--- NOTE | 2024-04-01 00:27 | P.HP_ITS ---
Same Day Surgery H&P Indication for Procedure/HPI DATE OF PROCEDURE: April 01, 2024 CHIEF COMPLAINT/INDICATIONFOR SURGICAL PROCEDURE: chronic menorrhagia PREOP DIAGNOSIS: chronic heavy menstrual bleeding PLANNED PROCEDURE: Operation Date: 04/01/24 07:00 Proposed Procedures p Laparoscopic Assist Vaginal Hysterectomy 73719, N92.0 R10.2(Not Applicable) - Guillermo Gray MD 33 y.o. h/o BTL h/o x one with chronic heavy menstrual bleeding Medications/Allergies* Home Medications Medication Instructions Recorded Confirmed Type pantoprazole 20 mg tablet,delayed 20 mg PO DAILY 10/24/20 03/30/24 History release albuterol sulfate 90 mcg/actuation 2 puff inhalation Q6H PRN 03/29/22 03/30/24 History aerosol inhaler Shortness Of Breath Or Wheezing fluoxetine 20 mg tablet 20 mg PO DAILY 03/29/22 03/30/24 History Allergies/Adverse Reactions Allergy/AdvReac Type Severity Reaction Status Date / Time codeine Allergy Severe closes Verified 10/20/23 13:05 throat [place] AdvReac Intermediate Hives Uncoded 10/20/23 13:05 Pertinent History/Comorbid Conditions* Medical History (Updated 10/25/23 @ 02:35 by Guillermo Gray MD) Cervical cancer screening Weight gain Cervicitis and endocervicitis Surgical History (Updated 10/24/20 @ 14:08 by Allison Medrano MD) H/O dilation and curettage 2011 History of tubal ligation 2014 History of delivery 10/07/2014-primary low transverse delivery done for nonreassuring heart tracing by Dr. Tirado at [facility] [place]. Immediate postoperative course was complicated by hemorrhage intraoperatively secondary to uterine atony. Patient's hemoglobin postoperatively dropped to 7.6 and she was given a transfusion of 4 units of PRBCs as she was lightheaded. Her hemoglobin recovered well and upon discharge was 12.1. Family History (Updated 08/21/20 @ 09:18 by Irene Lawrence LPN) Cervical cancer Grandmother Ovarian cancer Mother Diabetes Grandmother Family/Other Aunt Grandfather Breast cancer Grandmother Family history of thyroid problem Family/Other aunt Hypertension Mother Family/Other Aunt and Uncle Uterine cancer Mother Social History Alcohol intake: current Alcohol intake frequency: few times a month Pertinent Exam Findings alert, oriented x 3, clear to auscultation bilaterally and regular rate & rhythm Recommendations Surgery/Procedure today Coding Level of Care Code Acute Code for Chg Fwd Time Spent (min) 20
[2024-04-01] MEDS: sodium chloride 0.9% 1,000 ML 30 ML IV (06:29)
--- NOTE | 2024-04-01 06:44 | ECG_ITS ---
[facility] Test Date: 2024-04-01 Pat Name: Ashleigh Chung Department: Room: Gender: Female Home Fire Alarm Installer: : 1990 Requested By: Jaqueline Osorio Order Number: [id number] Lemus MD: Dennis Franz M.D. Measurements Intervals [place] Rate: 66 P: 28 FL: 228 QRS: 61 QRSD: 91 T: 47 QT: 380 QTc: 400 Interpretive Statements SINUS RHYTHM WITH FIRST DEGREE AV BLOCK Compared to ECG 07/05/2014 18:45:05 Sinus arrhythmia no longer present Electronically Signed On 04-01-2024 14:51:04 CDT by Dennis Franz M.D. [id number]
[2024-04-01 06:46] LABS: OR HCG Qualitative Urine Negative (Negative)
[2024-04-01 06:47] LABS: Basophils # 0.1 10^3/uL (0.0-0.1); Basophils % 0.6 %; Eosinophils # 0.1 10^3/uL (0.0-0.8); Lymphocytes # 3.1 10^3/uL (0.8-4.8); Lymphocytes % 35.6 %; Mean Corpuscular HGB Conc 31.6 g/dL (30-55); Mean Corpuscular Hemoglobin 27.6 pg (27-33); Mean Corpuscular Volume 87.3 fl (85-98); Monocytes # 0.6 10^3/uL (0.2-0.9); Monocytes % 7.1 %; Neutrophils # 4.78 10^3/uL (1.8-7.7); Neutrophils % 55.2 %; Nucleated Red Blood Cells % 0 %; Platelet Count 407 10^3/cmm (157-399); Red Blood Count 4.24 10^6/uL (3.85-5.65); Red Cell Distribution Width 14.3 % (12.1-15.1); White Blood Count 8.65 10^3/uL (3.29-11.43)
--- NOTE | 2024-04-01 06:53 | ANES.PREANE2 ---
Pre-Anesthetic Assessment Height/Weight: Height 1.57 m Weight 90.718 kg Temp Pulse Resp BP Pulse Ox O2 Del Method 97 F L 73 18 147/102 98 Room Air 04/01/24 06:15 04/01/24 06:15 04/01/24 06:15 04/01/24 06:15 04/01/24 06:15 04/01/24 06:22 Preop Diagnosis: chronic menorrhagia Operation Date: 04/01/24 07:00 Proposed Procedures p Laparoscopic Assist Vaginal Hysterectomy 75501, N92.0 R10.2(Not Applicable) - Guillermo Gray MD Familial anesthetic complications: none Was Beta Cynthia taken within 24 hours: N/A Was Clonidine taken within 24 hours: N/A Last intake: Intake Last Liquid Date 03/31/24 Last Liquid Time 23:15 Last Solid Date 03/31/24 Last Solid Time 22:00 Social Tobacco and No alcohol vapes Exam alert, oriented x 3, clear to auscultation bilaterally and regular rate & rhythm Airway Mallampati: Class III Dentition: full CV/HEM Palpitations Metabolic Morbid Obesity Anesthetic Plan ASA status: 2 Anesthesia: General Risk of > 500 ml blood loss (7ml/kg in children): No Medications/Allergies Home Medications Medication Instructions Recorded Confirmed Last Taken Type pantoprazole 20 mg tablet,delayed 20 mg PO DAILY 10/24/20 03/30/24 03/30/24 History release albuterol sulfate 90 mcg/actuation 2 puff inhalation Q6H PRN 03/29/22 03/30/24 03/30/24 History aerosol inhaler Shortness Of Breath Or Wheezing fluoxetine 20 mg tablet 20 mg PO DAILY 03/29/22 03/30/24 03/30/24 History Allergies Allergy/AdvReac Type Severity Reaction Status Date / Time codeine Allergy Severe closes Verified 10/20/23 13:05 throat [place] AdvReac Intermediate Hives Uncoded 10/20/23 13:05 Current Medications Generic Name Dose Route Start Last Admin Trade Name Freq PRN Reason Stop Dose Admin Sodium Chloride 1,000 mls @ 30 mls/hr 04/01/24 06:15 04/01/24 06:29 Sodium Chloride 0.9% IV 04/02/24 06:14 30 mls/hr .Q24H LILI Administration PFSH Anesthesia Medical History Cervical cancer screening Weight gain Cervicitis and endocervicitis Surgical History H/O dilation and curettage 2011 History of tubal ligation 2014 History of delivery 10/07/2014-primary low transverse delivery done for nonreassuring heart tracing [place] Dr. [place] [facility] [place] Immediate postoperative course was complicated by hemorrhage intraoperatively secondary to uterine atony. Patient's hemoglobin postoperatively dropped to 7.6 and she was given a transfusion of 4 units of PRBCs as she was lightheaded. Her hemoglobin recovered well and upon discharge was 12.1. Family History Mother Ovarian cancer Uterine cancer Hypertension Grandmother Breast cancer Diabetes Cervical cancer Family/Other Family history of thyroid problem aunt Hypertension Aunt and Uncle Diabetes Aunt Grandmother No problems noted. Grandfather Diabetes Social History Alcohol intake: current Alcohol intake frequency: few times a month Data Anesthesia 04/01/24 06:29 Short CBC 04/01/24 Range/Units 06:29 WBC 8.65 (3.29-11.43) 10^3/uL Hgb 11.70 (11.27-16.99) g/dL Hct 37.0 (36-47) % MCV 87.3 (85-98) fl Plt Count 407 H (157-399) 10^3/cmm Neut % (Auto) 55.2 % Neut # (Auto) 4.78 (1.8-7.7) 10^3/uL Cardiac Studies: Echocardiogram Ultrasound 12/19/20 Holter Monitor 08/16/20
--- NOTE | 2024-04-01 06:56 | W.PM.OPSUD ---
Surgery/Procedure H&P Update DATE OF PROCEDURE: April 01, 2024 DATE H&P PERFORMED: 03/31/24 H&P UPDATE INFORMATION: I have reviewed H&P completed within last 30 days, I have examined patient prior to procedure and No changes to prior documentation PREOP DIAGNOSIS: chronic menorrhagia PLANNED PROCEDURE: Operation Date: 04/01/24 07:00 Proposed Procedures p Laparoscopic Assist Vaginal Hysterectomy 08651, N92.0 R10.2(Not Applicable) - Guillermo Gray MD
[2024-04-01] MEDS: ceFAZolin 2,000 mg SDV 2000 MG IVP (07:13)
--- NOTE | 2024-04-01 08:04 | PC.NURSE ---
Procedure performed in OB 2. To successfully charge OR items, procedure documented in OR 6.
[2024-04-01] MEDS: lidocaine-epi 2% PF 1:200,000 20 mL SDV INJECTION (08:07)
--- NOTE | 2024-04-01 09:48 | P.OP_ITS ---
Operative Report Date of procedure: April 01, 2024 Pre-op diagnosis: chronic menorrhagia Post-op diagnosis: same Post-op findings: Moderately enlarged uterus Normal ovaries Fallopian tubes remnants from previous bilateral salpingectomy Normal anterior and posterior cul-de-sacs Normal pelvic side-johnson Normal liver edge Procedure done: Laparoscopic assisted vaginal hysterectomy Implants: none Specimens removed/disposition: uterus and cervix Surgeon: Crescencio Garcia MD Supervisor Ticket Sales: Guillermo Gray MD Anesthesia: General Estimated blood loss (mL): 50 Complications: none Findings: Moderately enlarged uterus Normal ovaries Fallopian tubes remnants from previous bilateral salpingectomy Normal anterior and posterior cul-de-sacs Normal pelvic side-johnson Normal liver edge Condition: stable Disposition: PACU Brief History: 33 y.o. with chronic menorrhagia Procedure: The patient was taken to the operating room, placed supine on the table. General endotracheal anesthesia was induced. A bills catheter was placed which drained clear urine. The patient was placed in dorsolithotomy position for laparoscopic surgery. The abdomen and perineum were prepped and draped in the usual sterile fashion. A Zumi uterine elevator was placed via the cervix for manipulation of the uterus. An intra-umbilical incision was made measuring approximately 1 cm. A Veress needle was inserted. After confirming intraperitoneal entry, a pneumoperitoneum was achieved. The Veress needle was removed. A trocar with sheath was placed. A laparoscope was inserted and used to visualize the pelvic organs. Normal ovaries were seen. The uterus was moderately enlarged. There was evidence of previous bilateral tubal ligation. The liver edge was normal. One additional skin incision in the suprapubic region was made measuring 0.5 cm. 5 mm trocar with sheath was inserted via this incision under laparoscopic visualization. A Ligasure device was placed. The Ligasure device was used to divide the round ligaments on both sides followed by the uteroovarian ligaments. These were successfully coagulated and divided without any bleeding. It was then decided to proceed vaginally to complete the vaginal hysterectomy portion of the procedure. The pneumoperitoneum was allowed to escape. The Zumi was removed. A vaginal Bookwalter retractor was placed. The cervicovaginal junction was incised and the anterior and posterior cul-de-sacs were entered without any injury to the underlying organs including the bowel and the bladder. The uterine vessels on both sides were then divided and coagulated without any difficulties. The uterus was removed. No bleeding was seen. The vaginal cuff was then closed using a running suture of O-Vicryl. The pneumoperitoneum was re-instituted and the pelvis was examined using the laparoscope to confirm good hemostasis. Following this, all instruments were removed from the abdomen after the pneumoperitoneum was allowed to escape. The laparoscopic skin incisions were then closed using 4-O skin sutures. The patient was placed supine and taken to the recovery room. Postoperative condition stable EBL: 50 cc Complications: none To PACU in good condition
--- NOTE | 2024-04-01 09:48 | ANE.PACU2 ---
Inpatient post-anesthesia follow up: Airway intact: Yes Vital signs: Temperature 98.3 F Pulse Rate 61 Respiratory Rate 18 Blood Pressure 100/64 Pulse Oximetry 96 Oxygen Delivery Me thod Room Air Oxygen Flow Rate 6 Fraction of Inspir ed Oxygen Hydration adequate: Yes Nausea and vomiting: No Pain level: 1 Mental status: Baseline
[2024-04-01] MEDS: ondansetron 2 mg/ML SDV 2 mL 4 MG IVP (10:22)
[2024-04-01] MEDS: HYDROcodone-acetaminophen 5-325 mg Tablet PO ×2 (14:19→19:45)
[2024-04-01] MEDS: dextrose 5%-lactated ringers 1,000 ML 125 ML IV (15:37)
[2024-04-01] MEDS: ketorolac 30 mg/mL INJ IVP ×2 (15:37→22:20)
[2024-04-01] MEDS: docusate sodium 100 mg Capsule PO (19:46)
[2024-04-01] MEDS: simethicone 80 mg Chew PO (22:15)
[2024-04-02] MEDS: hyDROXYzine 25 mg Capsule 50 MG PO (01:14)
[2024-04-02 04:00] VITALS: BP 120/71; PULSE 78; RESP 14; TEMP 36.8; O2SAT 99
[2024-04-02] MEDS: ketorolac 30 mg/mL INJ IVP (05:05)
[2024-04-02 05:26] LABS: Hematocrit 30.5 % (36-47); Mean Corpuscular HGB Conc 31.5 g/dL (30-55); Mean Corpuscular Hemoglobin 28.2 pg (27-33); Mean Corpuscular Volume 89.7 fl (85-98); Mean Platelet Volume 8.2 fL (7.4-10.4); Platelet Count 350 10^3/cmm (157-399); Red Cell Distribution Width 14.4 % (12.1-15.1); White Blood Count 11.13 10^3/uL (3.29-11.43)
[2024-04-02] MEDS: docusate sodium 100 mg Capsule PO (09:10)
[2024-04-02] MEDS: HYDROcodone-acetaminophen 5-325 mg Tablet PO ×2 (09:10→12:56)
[2024-04-02] MEDS: ibuprofen 800 mg tablet PO (12:56)
[2024-04-02 13:00] VITALS: BP 131/88; PULSE 65; RESP 18; TEMP 36.5; O2SAT 100
== END 2024-04-02 13:14 | disposition home or self-care (01) ==
LOC: OBGYN 10:57
PROVIDERS: Anesthesiology; Admitting Provider Obstetrics & Gynecology; PCP Nurse Practitioner Family; Visit Provider Obstetrics & Gynecology
PROC: 0UT9FZZ Resection of Uterus, Via Natural or Artificial Opening With Percutaneous Endoscopic Assistance (ICD-10-PCS; CPT 58550; principal; 2024-04-01 07:00)
DX: N72 Inflammatory disease of cervix uteri (principal); N80.03 Adenomyosis of the uterus; N87.9 Dysplasia of cervix uteri, unspecified
CPT/HCPCS: 58550; 36415; 81025; 85025; 85027; 86850; 86900; 88307; 93005; G0378; J0131; J0690; J1100; J1170; J1200; J1885; J2250; J2371; J2405; J2704; J2710; J3010; J3490; J7030; J7121

== ENCOUNTER 2024-06-28 11:12 | Outpatient (CLI) | payer BC, MEDICAID, SELFPAY ==
--- NOTE | 2024-06-28 10:10 | MM_ITS ---
WS: [id number] DIAGNOSTIC BILATERAL DIGITAL BREAST TOMOSYNTHESIS MAMMOGRAPHY WITH CAD RIGHT breast ultrasound, limited HISTORY: N64.4 - Mastodynia COMPARISON: 03/19/2022, 05/31/2016 TECHNIQUE: Bilateral craniocaudad, mediolateral oblique, and mediolateral views are submitted with to mosynthesis and SM. Spot compression RIGHT MLO and CC. Computer aided detection utilized. Breast composition: There are scattered areas of fibroglandular density. Triangular and square markers are placed in the upper outer quadrant of the RIGHT breast at the area of the palpable nodules and pain. There is no underlying mass identified. No distortion or calcificat ion. Similar in appearance to the prior examinations. Ultrasound to follow. RIGHT breast ultrasound, limited. Ultrasound directed to the upper outer quadrant of the RIGHT breast at the area of pain and nodules a s directed by the patient. There is no ultrasound abnormality identified. Patient did experience pain near 11:00 but there was no identifiable abnormality. MM/MM diag BI tomosynthesis [id number] IMPRESSION: BI-RADS: 2 - Benign. FOLLOW UP: 1 Year Follow-up No mammographic or ultrasound abnormality identified.
--- NOTE | 2024-06-28 10:30 | US_ITS ---
WS: [id number] DIAGNOSTIC BILATERAL DIGITAL BREAST TOMOSYNTHESIS MAMMOGRAPHY WITH CAD RIGHT breast ultrasound, limited HISTORY: N64.4 - Mastodynia COMPARISON: 03/19/2022, 05/31/2016 TECHNIQUE: Bilateral craniocaudad, mediolateral oblique, and mediolateral views are submitted with to mosynthesis and SM. Spot compression RIGHT MLO and CC. Computer aided detection utilized. Breast composition: There are scattered areas of fibroglandular density. Triangular and square markers are placed in the upper outer quadrant of the RIGHT breast at the area of the palpable nodules and pain. There is no underlying mass identified. No distortion or calcificat ion. Similar in appearance to the prior examinations. Ultrasound to follow. RIGHT breast ultrasound, limited. Ultrasound directed to the upper outer quadrant of the RIGHT breast at the area of pain and nodules a s directed by the patient. There is no ultrasound abnormality identified. Patient did experience pain near 11:00 but there was no identifiable abnormality. US/US breast RT limited* [id number] IMPRESSION: BI-RADS: 2 - Benign. FOLLOW UP: 1 Year Follow-up No mammographic or ultrasound abnormality identified.
== END 2024-06-28 11:13 | disposition home or self-care (01) ==
LOC: RAD 11:13
PROVIDERS: Absent Provider Obstetrics & Gynecology; PCP Nurse Practitioner Family; Visit Provider Family Medicine
DX: N64.4 Mastodynia (principal); R92.323 Mammographic fibroglandular density, bilateral breasts
CPT/HCPCS: 76642; 77062; G0279

== ENCOUNTER 2025-03-24 09:47 | Outpatient (CLI) | payer BC, MEDICAID, SELFPAY ==
--- NOTE | 2025-03-24 09:55 | XR_ITS ---
WS: [id number] Exam: XR sacrum coccyx min 2V [id number] Date/Time of Exam: 03/24/2025 9:56 AM Reason For Exam: COCCYX PAIN No sacrococcygeal fracture. No bone destruction. SI joints are open. XR/XR sacrum coccyx min 2V [id number] IMPRESSION: 1. No fracture or other significant finding.
--- NOTE | 2025-03-24 09:55 | XR_ITS ---
WS: [id number] Exam: XR lumbar spine 6V w f/e [id number] Date/Time of Exam: 03/24/2025 9:56 AM Reason For Exam: BACK PAIN DLP: No fracture or dislocation. Disc spaces are preserved. No flexion or extension instability. Mild levoscoliosis. XR/XR lumbar spine 6V w f/e [id number] IMPRESSION: 1. Slight levoscoliosis otherwise unremarkable lumbar spine study.
== END 2025-03-24 09:48 | disposition home or self-care (01) ==
LOC: RAD 09:52
PROVIDERS: PCP Nurse Practitioner Family; Visit Provider Nurse Practitioner Family
DX: M53.3 Sacrococcygeal disorders, not elsewhere classified (principal); M54.50 Low back pain, unspecified
CPT/HCPCS: 72114; 72220